=== PATIENT | female | born 1950 | race Caucasian/White ===

== ENCOUNTER → 2017-04-18 | Outpatient (CLI) | payer BC ==
[2016-04-14 13:07] VITALS: BP 134/81; PULSE 79
[~2017-04-18] MED LIST: AMOX500C3 PO; ANAS1TAB19 PO; ASPI81TA28 PO; ATOR10TA88 PO; CETI10TA84 PO; CITA10TA4 PO; DIAZ-165 PO; HYDR-3419 PO; IBUP-1427 PO; LORA-741 PO; MULT-506 PO; PROP10TA7 PO
[2017-04-18 13:38] VITALS: BP 125/85; PULSE 77; TEMP 37.1; O2SAT 97
--- NOTE | 2017-04-18 16:27 | Radiation Oncology Follow-Up ---
Radiation Oncology Follow-Up Date of Visit Apr 18, 2017. Reason For Visit Annual follow-up Radiation Completion Date 09/09/15 Diagnosis (1) Breast cancer Status: Resolved Onset Date: 05/08/2015 Histology Subtype: ductal Stage: ll (A) Permanent Comment: DIAGNOSIS: Left breast, invasive ductal carcinoma, grade 2, ER/CA positive, Her2 negative, pT2N0, stage IIA TREATMENT: Status post ultrasound-guided biopsy 05/18/2015 Lumpectomy and SLN biopsy on 05/27/2015 (Dr. Chacha Figueroa) Prosigna Test at 64 recurrence rate of 14% no chemotherapy Status post completion of radiation therapy 09/09/2015 received 6640 cGy Last Edited By: Natali Delong on Sep 18, 2015 13:26 History of Present Illness Mrs. Aguilar is a 65-year-old female who initially presented with an abnormal screening mammogram on 05/06/2015 which showed a high density irregular mass in the upper outer quadrant of the breast. She then went on to have a diagnostic left mammogram and ultrasound completed on 05/08/2015 which revealed an irregular mass with pleomorphic calcifications in the middle left breast that measured 22 mm in the greatest dimension on ultrasonography. She underwent an ultrasoundguided biopsy on 05/08/2015 which revealed invasive ductal carcinoma that was grade 2 with microcalcifications. Hormonal testing revealed estrogen receptor positive, progesterone receptor positive and HER-2 negative. She was referred to Dr. Figueroa who discussed treatment options including a mastectomy and lumpectomy followed by adjuvant radiation therapy. She ended up opting for breast conserving therapy and underwent a lumpectomy and sentinel lymph node biopsy on 05/19/2015 which revealed a unifocal invasive ductal carcinoma involving the left upper outer quadrant. The tumor measured 2.5 cm in greatest dimension and there was DCIS present as well. The margins were negative for both DCIS and invasive ductal carcinoma by at least 5 mm. There is no evidence of lymphovascular space invasion. The sentinel lymph node was also negative. Patient has been referred to Dr. Puentes she has not seen him in consultation we'll see him in 07/15/2015. She did have a Prosigna test which completed on 2014 with a score of 64. She now presents for discussion of adjuvant radiation therapy. She completed radiation therapy 09/09/2015 received 6640 cGy. Interim History She's been doing well over this past year. She noticed no changes to her breast. She does have intermittent discomfort in the area of the incision. Pain level is minimal. She does not give at a level. She is not taking any fawa-brh-[id number] medications for this discomfort. This is unchanged. Is not affected by wearing a bra. She had no swelling or redness. She continues on antiestrogen therapy with Arimidex. For the first 6 months she had significant hot flash reactions. These then steadily improved and resolved. She is up-to- date on mammography. She is previously started and evaluation with the genetics counselor at [facility]. She stated that she completed an extensive phone consultation. She also completed the family tree. She has not completed genetic testing. She is scheduled to undergo an elective hysterectomy due to prolapse. She had a mammogram 12/08/2016. She is status post radiation therapy and lumpectomy. A complex cyst on ultrasound in the upper outer quadrant at a middle depth, decreased in size. Findings are probably benign. Follow-up in 6 months. Allergies Coded Allergies: Oxycodone (Verified Allergy, Severe, Rash, Hair Loss, Hallucinations , 07/08/15) Lobster (Verified Allergy, Unknown, FAINTING, DIZZINESS, HOT FLASHES, 11/09) Home Medications Scheduled Anastrozole (Arimidex), 1 TAB PO HS Aspirin (Aspirin Ec), 81 MG PO DAILY Atorvastatin (Lipitor), 10 MG PO QPM Citalopram Hydrobromide (Citalopram Hydrobromide), 1 TAB PO DAILY Ibuprofen Tab (Motrin), 1 TAB PO HS Multivitamin (Multivitamin), 1 TAB PO DAILY Scheduled PRN Amoxicillin (Amoxil), 2,000 MG PO PRN PRN for before dental procedures Hydrocodon/Acetaminophen 5MG/300MG (Vicodin (5MG/300MG)), 1 TAB PO Q4H PRN for Pain Lorazepam (Ativan), 0.5 MG PO HS PRN for Sleep Review of Systems Gastrointestinal: Symptoms: WNL Oral: Symptoms: No Problems Other Oral Symptoms: Patient bites lip at night once in a while and gets small sores Respiratory: Symptoms: WNL Urinary: Symptoms: WNL Skin: Symptoms: No Problems Breast: Right Upper Arm Measurement: 27.0 Right Mid Arm Measurement: 23.2 Right Wrist Measurement: 16.2 Left Upper Arm Measurement: 28.0 Left Mid Arm Measurement: 23.2 Left Wrist Measurement: 15.9 Arm Dominence: Right Physical Exam Vital Signs Date Time Temp Pulse Resp B/P (MAP) Pulse Ox O2 Delivery O2 Flow Rate FiO2 04/18/17 13:38 37.1 77 16 125/85 97 Pain: Pain Onset: Comes and goes Patient Pain Scale: 0 - 10 Initial Pain Intensity: 0.0 Additional Comments: Patient gets "twinges" of pain in left breast at incision site and under ar Fatigue: None General Appearance: no apparent distress Eyes: normal inspection, EOMI ENT: normal ENT inspection, hearing grossly normal Neck: no adenopathy, thyroid normal Respiratory/Chest: lungs clear, no respiratory distress, no accessory muscle use Breast: Breast examination reveals well-healed incisions of the left breast. There is noted fibrous tissue in the area of the incision and centrally of the breast. There is mild tenderness to palpation in this area. There is no erythema or edema. There are no distinct masses. She has no axillary adenopathy. There are no skin retractions or nipple changes. Using the Endicott score cosmesis she has a good outcome. The right breast showed no masses or tenderness and no axillary adenopathy. Cardiovascular: regular rate, rhythm, no gallop, no murmur Extremities: no pedal edema Neurologic/Psychiatric: no motor/sensory deficits, alert, normal mood/affect Skin: warm/dry Lymphatic: no adenopathy Additional Studies Mammography as reviewed above. Assessment & Plan Plan: Continue follow-up with Dr. Puentes, Dr. Mederos, Dr. Figueroa. She is going to be undergoing a hysterectomy due to prolapse. She stated that she will try to arrange a possible visit with the genetics counselor when she is in [place]. She does want to go forward with genetic testing. She continues on anti-estrogen therapy. We discussed the scar tissue of her breast and associated discomfort. This will steadily improve over time. We asked her to return to our office in 1 year. She may call if she has any questions or concerns in the interim. She is scheduled for her next mammogram on 06/13/2017. Total Time In Follow-Up I spent 20 minutes speaking to the patient performing examination. I spent 15 minutes reviewing information in completing this note. Copy To Chacha Figueroa MD; Lawrence Mederos M.D.; Nima Puentes M.D. Problem Qualifiers (1) Breast cancer: Breast location: upper outer quadrant of breast Estrogen receptor status: positive Patient sex: female Laterality: left Qualified Codes: C50.412 - Malignant neoplasm of upper-outer quadrant of left female breast; Z17.0 - Estrogen receptor positive status [ER+]
== END | disposition home or self-care (01) ==
LOC: C.ONC 13:33
PROVIDERS: ATTEND Physician Assistant Medical
DX: Z08 Encounter for follow-up examination after completed treatment for malignant neoplasm (principal); Z92.3 Personal history of irradiation; Z85.3 Personal history of malignant neoplasm of breast

== ENCOUNTER 2022-01-18 09:04 | Observation (INO) ==
--- NOTE | 2022-01-03 15:36 | PAT Medication Instructions ---
Medication Instructions Date of Service January 03, 2022 Home Medications amoxicillin 500 mg tablet 2,000 mg PO UD PRN anastrozole 1 mg tablet 1 mg PO HS aspirin 81 mg chewable tablet 81 mg PO QAM atorvastatin 10 mg tablet (Lipitor) 10 mg PO HS citalopram 20 mg tablet 20 mg PO QAM diphenhydramine HCl 25 mg tablet (Benadryl Allergy) 25 mg PO HS PRN doxycycline hyclate 50 mg tablet 50 mg PO QAM famotidine 20 mg tablet 20 mg PO DAILY PRN folic acid 400 mcg tablet 0.4 mg PO QAM hydrocodone 5 mg-acetaminophen 325 mg tablet 0.25 tab PO HS PRN ibuprofen 400 mg tablet 400 mg PO TID latanoprost (PF) 0.005 % eye drops 1 drp OPHTHALMIC (EYE) HS loratadine 10 mg tablet (Claritin) 10 mg PO DAILY PRN lorazepam 0.5 mg tablet 0.5 mg PO HS PRN One-A-Day Womens Formula 1 tab PO QAM propranolol 10 mg tablet 10 mg PO DAILY PRN Continue as directed amoxicillin 500 mg tablet 2,000 mg PO UD PRN (if needed) ASK your surgeon for instructions ibuprofen 400 mg tablet 400 mg PO TID ASK your prescriber and surgeon anastrozole 1 mg tablet 1 mg PO HS DO NOT take the morning of surgery folic acid 400 mcg tablet 0.4 mg PO QAM loratadine 10 mg tablet (Claritin) 10 mg PO DAILY PRN One-A-Day Womens Formula 1 tab PO QAM Take morning of surgery With a small sip of water, OTHERWISE NOTHING TO EAT OR DRINK AFTER MIDNIGHT: aspirin 81 mg chewable tablet 81 mg PO QAM (continue as normal unless told ot herwise by surgeon) citalopram 20 mg tablet 20 mg PO QAM doxycycline hyclate 50 mg tablet 50 mg PO QAM famotidine 20 mg tablet 20 mg PO DAILY PRN (if needed) propranolol 10 mg tablet 10 mg PO DAILY PRN (if needed) Take evening before surgery anastrozole 1 mg tablet 1 mg PO HS atorvastatin 10 mg tablet (Lipitor) 10 mg PO HS diphenhydramine HCl 25 mg tablet (Benadryl Allergy) 25 mg PO HS PRN (if needed) famotidine 20 mg tablet 20 mg PO DAILY PRN (if needed) hydrocodone 5 mg-acetaminophen 325 mg tablet 0.25 tab PO HS PRN (if needed) latanoprost (PF) 0.005 % eye drops 1 drp OPHTHALMIC (EYE) HS loratadine 10 mg tablet (Claritin) 10 mg PO DAILY PRN (if needed) lorazepam 0.5 mg tablet 0.5 mg PO HS PRN (if needed) propranolol 10 mg tablet 10 mg PO DAILY PRN (if needed) Other Notes If you have any questions please call us at [phone] or [phone] or [phone] or [phone]
--- NOTE | 2022-01-04 13:17 | Anesthesiology Consultation ---
Date of Service January 04, 2022 Assessment & Plan (1) Encounter for pre-operative examination: Chart Review Chart Review: Acceptable Risk for Surgery (pending PCP appt, UA, and preop Covid testing results ) and Patient seen in Pre Admission Testing - Pending PCP appt 01/10/22 - Unable to void at PAT appt - will bring in UA at later date Per PAT appt on 01/04/22, patient denies any recent travel or large group activities. No known Covid positive exposures or Covid related symptoms. No known Covid infection in the past 90 days. Pt is vaccinated for Covid. Preop Covid testing scheduled 01/14/22 = will await results. Educated on importance of self quarantining, social distancing and wearing mask in public for the patient one week prior to surgery and after Covid testing done Teaching & Discussion Pre-Anesthesia Teaching/Discussion Notes: Instructed NPO after midnight before surgery,except medications with 15 cc of water. Medication instructions provided according to the [facility] guidelines. History Surgery Operation Date: 01/18/22 12:55 Proposed Procedures p Right Total Knee Arthroplasty - Ralf Modi DO Height/Weight Height: 5 ft 8 in Weight: 80.3 kg Allergies Allergy/AdvReac Type Severity Reaction Status Date / Time oxycodone Allergy Severe Rash, Hair Verified 01/03/22 07:55 Loss, Hallucinations, disrupts balance Lobster Allergy Intermediate FAINTING, Uncoded 01/03/22 07:55 DIZZINESS, HOT FLASHES Medications Home Medications Medication Instructions Recorded Confirmed Last Taken amoxicillin 500 mg tablet 2,000 mg PO UD PRN 01/03/22 01/03/22 Unknown anastrozole 1 mg tablet 1 mg PO HS 01/03/22 01/03/22 Unknown aspirin 81 mg chewable tablet 81 mg PO QAM 01/03/22 01/03/22 Unknown atorvastatin 10 mg tablet (Lipitor) 10 mg PO HS 01/03/22 01/03/22 Unknown citalopram 20 mg tablet 20 mg PO QAM 01/03/22 01/03/22 Unknown diphenhydramine HCl 25 mg tablet 25 mg PO HS PRN 01/03/22 01/03/22 Unknown (Benadryl Allergy) doxycycline hyclate 50 mg tablet 50 mg PO QAM 01/03/22 01/03/22 Unknown famotidine 20 mg tablet 20 mg PO DAILY PRN 01/03/22 01/03/22 Unknown folic acid 400 mcg tablet 0.4 mg PO QAM 01/03/22 01/03/22 Unknown hydrocodone 5 mg-acetaminophen 325 0.25 tab PO HS PRN 01/03/22 01/03/22 Unknown mg tablet ibuprofen 400 mg tablet 400 mg PO TID 01/03/22 01/03/22 Unknown latanoprost (PF) 0.005 % eye drops 1 drp OPHTHALMIC (EYE) HS 01/03/22 01/03/22 Unknown loratadine 10 mg tablet (Claritin) 10 mg PO DAILY PRN 01/03/22 01/03/22 Unknown lorazepam 0.5 mg tablet 0.5 mg PO HS PRN 01/03/22 01/03/22 Unknown agptlpoy-zot-bfly-FA-Ca carb-vit K 1 tab PO QAM 01/03/22 01/03/22 Unknown 18 mg iron-400 mcg-500 mg tablet (One-A-Day Womens Formula) propranolol 10 mg tablet 10 mg PO DAILY PRN 01/03/22 01/03/22 Unknown Past Medical History Medical History Anxiety Heartburn Well controlled and stable History of left breast cancer Diagnosed 2014--sx/radiation - takes anastrozole Left limb restriction per pt request Hyperlipidemia Normal pressure glaucoma Left eye- follows with eye doctor routinely Seasonal allergies Tachycardia Intermittent, per pt happens typically d/t caffeine---takes propranolol PRN Well controlled- no issues x years Exercise / Class Metabolic Activity II 4-5 Yardwork/Stairs/Walk up hill (one flight of stairs - no chest pain or SOB ) Past Family History Family History Other No family history of adverse response to anesthesia Past Surgical History Surgical History History of arthroscopy of left knee x3 History of left breast biopsy malignant History of lumpectomy of left breast (~2014) History of tonsillectomy and adenoidectomy History of tooth extraction History of total left knee replacement (TKR) (~2009) History of total vaginal hysterectomy (TVH) with BSO Past Anesthesia History No Hx of Anesthesia Complications and No Family Hx of Anesthesia Complications History of PONV No Hx of PONV and No Hx of Motion Sickness Social History Smoking Status: Former smoker Do You Dip or Chew Tobacco: No Smoking End Date: quit 1987 Hx Alcohol Use: Yes Alcohol type: beer alcohol intake frequency: holidays/special occasions only Hx Substance Use: No substance use type: does not use Review of Systems -Increased anxiety (seeing PCP) -Hx of snoring (not loud per patient)- no hx of sleep study Patient denies chest pain, shortness of breath, dyspnea on exertion, cough, wheezing, palpitations. No hx of seizures, stroke, RI. No hx of blood clots or blood transfusions Physical Exam Vital Signs VITALS BP 118/76 P 80 TEMP 98.4 SP02 96% RESP 16 Constitutional no acute distress ENMT Mouth: + small oral opening; no TMJ clicking Thyromental Distance: > or= 3.5 Finger Breadths (3.5) Mallampati Class: III Neck neck extension not limited Respiratory normal respiratory effort; no respiratory distress Auscultation: lungs clear to auscultation bilaterally; no wheezes Cardiovascular Rate/Rhythm: regular rate and regular rhythm Heart Sounds: no murmur Vessels: no carotid bruit Musculoskeletal Spine: no pain with cervical ROM Extremities: extremities normal to inspection Psychiatric Orientation: alert Lab Results Anesthesia Preop Results Results Anesthesia Widget: WBC 5.92 K/uL (4.8-10.8) 01/04/22 Hgb 12.6 g/dL (12.0-16.0) 01/04/22 Hct 38.1 % (37-47) 01/04/22 Plt 279 K/uL (130-400) 01/04/22 Na 140 mmol/L (136-145) 01/04/22 K 3.6 mmol/L (3.5-5.1) 01/04/22 Cl 106 mmol/L (98-107) 01/04/22 CO2 26 mmol/L (21-32) 01/04/22 BUN 15 mg/dl (6-23) 01/04/22 Creat 0.80 mg/dl (0.6-1.2) 01/04/22 Glucose Level 103 mg/dl (70-99(Fasting)) H 01/04/22 PT 10.3 Seconds (9.0-12.0) 01/04/22 PTT 24.9 Seconds (21.0-31.0) 01/04/22 INR 1.0 (0.9-1.1) 01/04/22 HA1c 5.6 % (4.5-5.6) 01/04/22 Blood Type O Positive 01/04/22 Antibody Screen NEGATIVE 01/04/22 Testing Electrocardiogram Date: 01/04/22 Findings: + NSR @ (61bpm ) Cannot rule out anterior infarct, age undetermined. Nonspecific ST abnormality When compared to EKG from November 24, 2014- no significant change was found Chest X-Ray Date: 08/17/21 Findings: + NAD RIBS 2 VIEWS/CXR 2 VIEWS No acute rib fracture is identified. Lungs are well aerated. Cardiovascular silhouette is within normal limits
--- NOTE | 2022-01-05 13:37 | History & Physical Report ---
Date of Service January 05, 2022 date of surgery: 01/18/22 Procedure: Right Total Knee Arthroplasty Surgeon: Ralf Modi Assessment & Plan (1) Arthritis of right knee: Plan: presents with continued right knee pain, her cortisone injections are lasting less than a month now. her xrays show advanced DJD right knee, bone on bone medial compartment and PF joint, osteophytes present and joint space narrowing. she would like to proceed with patient matched Right TKA. she has S&N on her left knee in 2009, will proceed with patient matched S&N Right TKA. plan on home health PT, ASA 81 mg po bid. The risks and benefits have been discussed including, but not limited to, risk of infection, nerve injury, stiffness, loss of motion, failure to improve, etc. Reasonable outcomes and options of treatment were discussed. An explanation of appropriate alternatives to the procedure that may be advantageous were discussed and their risks and benefits, as well as the risks and benefits of not proceeding with treatment. I offered to answer any additional inquiries con cerning the treatment involved. All the patient's questions were answered. The patient is agreeable, understanding of the treatment plan and alternatives, and wishes to proceed with the treatment plan. History of Present Illness Chief Complaint: Right knee pain Primary Care Provider: Lawrence Mederos MD Monique is a 71 year old female who complains of right knee pain, presents for pre-op evaluation prior to a right total knee replacement by Dr Modi at [facility]. She complains of pain, decreased range of motion, instability and stiffness in her right knee. Currently the patient states that the symptoms are moderate- severe and rated 7/10. The pain is described as aching, sharp and throbbing. Her symptoms are aggravated by ascending stairs, daily activities, first steps while awake walking. Prior NSAIDs include IBU and Aleve. Prior pain medications include Tylenol and Hydrocodone. she has been treated with multiple previous cortisone and visco injections in the past without much relief. Allergies Allergy/AdvReac Type Severity Reaction Status Date / Time oxycodone Allergy Severe Rash, Hair Verified 01/03/22 07:55 Loss, Hallucinations, disrupts balance Lobster Allergy Intermediate FAINTING, Uncoded 01/03/22 07:55 DIZZINESS, HOT FLASHES Home Medications Medication Instructions Recorded Confirmed Type amoxicillin 500 mg tablet 2,000 mg PO UD PRN 01/03/22 01/03/22 History anastrozole 1 mg tablet 1 mg PO HS 01/03/22 01/03/22 History aspirin 81 mg chewable tablet 81 mg PO QAM 01/03/22 01/03/22 History atorvastatin 10 mg tablet (Lipitor) 10 mg PO HS 01/03/22 01/03/22 History citalopram 20 mg tablet 20 mg PO QAM 01/03/22 01/03/22 History diphenhydramine HCl 25 mg tablet 25 mg PO HS PRN 01/03/22 01/03/22 History (Benadryl Allergy) doxycycline hyclate 50 mg tablet 50 mg PO QAM 01/03/22 01/03/22 History famotidine 20 mg tablet 20 mg PO DAILY PRN 01/03/22 01/03/22 History folic acid 400 mcg tablet 0.4 mg PO QAM 01/03/22 01/03/22 History hydrocodone 5 mg-acetaminophen 325 0.25 tab PO HS PRN 01/03/22 01/03/22 History mg tablet ibuprofen 400 mg tablet 400 mg PO TID 01/03/22 01/03/22 History latanoprost (PF) 0.005 % eye drops 1 drp OPHTHALMIC (EYE) HS 01/03/22 01/03/22 History loratadine 10 mg tablet (Claritin) 10 mg PO DAILY PRN 01/03/22 01/03/22 History lorazepam 0.5 mg tablet 0.5 mg PO HS PRN 01/03/22 01/03/22 History lhoeaqxy-ekr-xfjw-FA-Ca carb-vit K 1 tab PO QAM 01/03/22 01/03/22 History 18 mg iron-400 mcg-500 mg tablet (One-A-Day Womens Formula) propranolol 10 mg tablet 10 mg PO DAILY PRN 01/03/22 01/03/22 History Past Med/Surg History Medical History Anxiety Heartburn Well controlled and stable History of left breast cancer Diagnosed 2014--sx/radiation - takes anastrozole Left limb restriction per pt request Hyperlipidemia Normal pressure glaucoma Left eye- follows with eye doctor routinely Seasonal allergies Tachycardia Intermittent, per pt happens typically d/t caffeine---takes propranolol PRN Well controlled- no issues x years Surgical History History of arthroscopy of left knee x3 History of left breast biopsy malignant History of lumpectomy of left breast (~2014) History of tonsillectomy and adenoidectomy History of tooth extraction History of total left knee replacement (TKR) (~2009) History of total vaginal hysterectomy (TVH) with BSO Family History Other No family history of adverse response to anesthesia Social History Smoking Status: Former smoker Second Hand Exposure: No; Hx Alcohol Use: Yes Alcohol type: beer Hx Substance Use: No Preferred Language: Croatian Communication Ability: Effective Photograph Developer Required: No Beliefs That Will Affect Care: None Current Living Situation: Spouse Feels Safe at Home: Yes Assistive Devices: Glasses Review of Systems Review of Systems: All systems reviewed & are unremarkable except as noted in HPI & below Constitutional: no fever, no chills and no sweats Respiratory: no cough and no dyspnea Cardiovascular: no chest pain, no dyspnea and no orthopnea Gastrointestinal: no abdominal pain, no nausea and no vomiting Musculoskeletal: as per Subjective / HPI Physical Exam Physical Exam: HT: 5ft 8in WT: 80.3kg Constitutional: WD/WN, vitals as above no acute distress Respiratory: normal respiratory effort, lungs clear to auscultation no r espiratory distress, no labored breathing and does not use accessory muscles Cardiovascular: RRR, no murmur, no edema Gastrointestinal (Abdomen): normal bowel sounds, soft, nontender, no hepatosplenomegaly Musculoskeletal: Knee: + knee abnormal to inspection (Right Knee: ), + effusion (+1 effusion), + limited ROM of knee (ROM 0/3/110), + knee ROM with crepitation, + joint line tenderness (medial joint line) and + Yeyo's sign positive; no deformity, no skin erythema, no ecchymosis, no valgus laxity, no varus laxity, anterior drawer test negative, Naveed's sign negative and pivot shift test negative Results & Data Results & Data ([facility]) Diagnostic Findings Right Knee X-ray: Right knee series showing advanced degenerative changes to the right knee, narrowing of the medial compartment and patello-femoral joint with patellar spurring noted, findings showing joint space narrowing of the medial compartment and patello-femoral joint, osteophyte formation and subchondral sclerosis noted. overall varus alignment. no acute bony pathology noted.
[~2022-01-18 09:04] MED LIST changes: +ACETAMINOPHEN 500 MG TAB PO SCH; -AMOX500C3 PO; -ANAS1TAB19 PO; -ASPI81TA28 PO; -ATOR10TA88 PO; +BUPIVACAINE 0.5 % 5 MG/1 ML PF 10ML VIAL ONE; -CETI10TA84 PO; -CITA10TA4 PO; +CeleBREX 200 MG CAP PO SCH; -DIAZ-165 PO; +FAMOTIDINE 20 MG TAB PO SCH; +GABAPENTIN 300 MG CAP PO SCH; -HYDR-3419 PO; -IBUP-1427 PO; -LORA-741 PO; +LR 500ML BOLUS, THEN 15ML/HR IV SCH; +METOCLOPRAMIDE HCL 10 MG TABLET PO SCH; -MULT-506 PO; -PROP10TA7 PO; +ROPIVACAINE 0.5% 5 MG/ML 30 ML VIAL ONE; +ROPIVACAINE 0.5% HCL/PF 150 MG, BUPIVACAINE 0.75% MPF 20 ML, EPINEPHrine 30MG/30ML (OR ... INSTIL SCH; +TRANEXAMIC ACID 1,000 MG **IV Intra-op IV SCH; +TRANEXAMIC ACID 1,000 MG **IV Pre-op IV SCH; +ceFAZolin 2000MG 2,000 MG/15 ML SYR IV SCH; +dexAMETHasone 4 MG TAB PO SCH
--- NOTE | 2022-01-18 10:19 | History & Physical Bridge Note ---
Date of Service January 18, 2022 History & Physical Bridge Note I have examined the patient, reviewed the History & Physical and in the interval since the performance of the History & Physical I have noted the following changes of clinical significance: no changes noted
[2022-01-18] MEDS ORDERED: PROPOFOL IV EMULSION 10 MG/ML 20 ML VIAL IV ONE (10:29)
[2022-01-18] MEDS ORDERED: MIDAZOLAM HCL 1 MG/ML 2ML VIAL ONE (10:30)
[2022-01-18] MEDS ORDERED: fentaNYL citrate 100 MCG/2 ML VIAL ONE (10:30)
[2022-01-18] MEDS ORDERED: ONDANSETRON INJ 2 MG/ML 2 ML VIAL IV PRN ×2 (12:06→17:15)
[2022-01-18] MEDS ORDERED: ORTHO JOINT ANESTHETIC ONE (12:06)
[2022-01-18] MEDS ORDERED: HYDROmorphone INJ 1 MG/ML SYRINGE IV PRN ×2 (12:06→17:15)
[2022-01-18] MEDS ORDERED: ATROPINE SULFATE 0.1 MG/ML 10ML SYR IV PRN (12:06)
[2022-01-18] MEDS ORDERED: PROMETHAZINE HCL 6.25 MG in SODIUM CHLORIDE 0.9% 50 ML IV PRN (12:06)
[2022-01-18] MEDS ORDERED: KETOROLAC TROMETHAMINE 15 MG/ML VIAL IV PRN (12:06)
[2022-01-18] MEDS ORDERED: ePHEDrine sulfate 50 MG/ML AMP IV PRN (12:06)
--- NOTE | 2022-01-18 13:51 | Operative Report ---
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 I identified the patient and participated in the time-out.: Yes Procedure Operation Date: 01/18/22 11:45 Actual Procedures p Right Total Knee Arthroplasty(Right) utilizing [employer] journey to nonblock total knee arthroplasty size femur 5 tibia 3 polyten patella 29 Ralf Modi DO Surgeon Ralf Modi DO Online Activist EDUIN Levine Estimated Blood Loss 5 Findings Consistent with Post-Op Diagnosis Patient presents with severe end-stage tricompartmental degenerative joint disease with valgus alignment with medial collateral ligament laxity eburnated [id number] with bone loss of the lateral femoral condyle with subchondral cystic changes marginal osteophytes and a large effusion Specimens Bone and cartilage Drains Medium bore Hemovac Anesthesia Type MAC Spinal Regional Complications none Disposition Accompanied Patient To Recovery: No Disposition: Recovery Room Indications Patient presents with severe end-stage tricompartmental DJD after failed attempted conservative management clinic physical therapy anti-inflammatories relative rest activity modification corticosteroid injection viscosupplementation the above intraoperative findings were noted Description of Procedure After proper prepping and draping of the Right lower extremity anterior midline incision was made over the region of the extensor extensor mechanism after meticulous hemostasis was obtained and maintained in subcutaneous tissues a medial parapatellar incision was made The patella was subluxed lateralward the medial lateral gutter were cleaned from any hypertrophic synovitis and scar tissue of the distal femoral block was placed and the distal femoral osteotomy cut was made subsequently the chamfers anterior and posterior osteotomy cuts were made utilizing the 4-in-1 block the tibia was subsequently subluxed anteriorward medial and ateral meniscal remnants were excised in their entirety remnants of the anterior and posterior cruciate ligaments were excised in their entirety excellent exposure of the proximal tibia was obtained the tibial osteotomy guide was placed on the proximal tibial osteotomy cut was made once again the knee was irrigated with copious amounts of sterile saline solution the patella was subsequently everted lateralward thickened scar tissue around the patella was removed the patella was subsequently cut utilizing a freehand technique and was drilled prepared for final preparation and placement of patella socially flexion-extension gaps were checked and the equal and symmetric trials were placed to the appropriate femoral and tibial trials with poly-spacer being placed for equal flexion and extension gaps and full range of motion including extension to 0 and flexion to 140 the trial components after having been taken to recovery range of motion was subsequently removed meticulous hemostasis was obtained and maintained subsequently a knee block injection of joint cocktail including ropivacaine 0.5% 150 mg. Bupivacaine 0.5% epinephrine 1-200,030 mL's toradol 30 mg dexamethasone 4 mg ketamine 10 mg clonidine 100 micrograms normal saline solution 30 mg was infiltrated into the soft tissues of the posterior knee medial lateral gutters and periosteal synovium special attention was paid to protect neurovascular structures at all times subsequently trial components having been removed the knee was irrigated with sterile saline solution. debris was removed the proximal tibia was subsequently prepared and was made ready for the placement of the tibial component tibial component was also cemented and tamped into position the femoral component was subsequently placed and cemented in the position the patellar component was subsequently cemented in position because hemostasis once again obtained and maintained wound having been thoroughly irrigated with debridement and debridement lavage was performed as well as a medial parapatellar incision closed with #1 Vicryl in interrupted fashion subcutaneous was closed with #2 Vicryl skin was closed with skin clips. PA-C was necessary for prepping and drapping as well as wound closure of deep fascia Sub cutaneous tissue and skin and was necessary for the case. A sterile compressive dressing was placed patient was taken to recovery in stable condition of report dictated by Rian I attest to the content of the Intraoperative Record and any orders documented therein. Any exceptions are noted below.Due to the complex nature of the procedure, the entire surgery was performed with the operational assistance of EDUIN Levine. The family services assistant, under direct supervision, was involved in the actual performance of all aspects of the surgical procedure including hemostasis, tissue retraction and incision, instrument management, patient positioning, and wound closure. I attest to the content of the Intraoperative Record and any orders documented therein. Any exceptions are noted below.
--- NOTE | 2022-01-18 15:09 | XRay Report ---
XR knee RT 1 or 2V routine HISTORY: 71 years-old Female Surgical Post Op right knee total joint COMPARISON: None TECHNIQUE: 2 views of the right knee FINDINGS: Total joint arthroplasty with patellar resurfacing. Expected postoperative soft tissue swelling with deep tissue air and surgical drainage catheter. No acute fracture or unexpected opaque foreign body. IMPRESSION: Total joint arthroplasty with expected postoperative changes. ACT 112: Negative or not required by law. The above report was generated using voice recognition software. It may contain grammatical, syntax o r spelling errors. Electronically signed by: Melvin Matt M.D. 01/18/2022 3:07 PM
--- NOTE | 2022-01-18 15:25 | Anesthesiology Progress Note ---
Date of Service January 18, 2022 Anesthesia Post Procedure Vital Signs Vital Signs: Temp Pulse Pulse Resp BP Pulse Ox 01/18/22 15:05 67 10 L 141/80 H 94 01/18/22 14:55 76 13 139/80 97 01/18/22 14:45 83 19 127/78 99 01/18/22 14:35 82 10 L 126/69 98 01/18/22 14:29 36.1 C L 93 H 19 132/72 97 01/18/22 09:32 36.9 C 62 18 128/94 98 Pain Intensity Right Knee: Pain Intensity: 5 Transfer of Care Handoff Completed per policy Notes Mental Status: alert / awake / arousable Patient Amnestic to Procedure: Yes Nausea / Vomiting: adequately controlled Pain: adequately controlled Airway Patency, RR, SpO2: stable & adequate BP & HR: stable & adequate Hydration State: stable & adequate Neuraxial Anesthesia: was administered and sensory block is resolving Anesthetic Complications: no major complications apparent
[2022-01-18] MEDS ORDERED: LORazepam 0.5 MG TAB PO PRN (17:15)
[2022-01-18] MEDS ORDERED: bisacodyL 10 MG SUPP PR PRN (17:15)
[2022-01-18] MEDS ORDERED: MAGNESIUM HYDROXIDE SUSP 30 ML UDC PO PRN (17:15)
[2022-01-18] MEDS ORDERED: PROPRANOLOL HCL 10 MG TAB PO PRN (17:15)
[2022-01-18] MEDS ORDERED: METOCLOPRAMIDE HCL INJ 5 MG/ML 2 ML VIAL IV PRN (17:15)
[2022-01-18] MEDS ORDERED: diphenhydrAMINE Capsule 25 MG CAP PO PRN (17:15)
[2022-01-18] MEDS ORDERED: FAMOTIDINE 20 MG TAB PO PRN (17:15)
[2022-01-18] MEDS ORDERED: LORATADINE 10 MG TAB PO PRN (17:15)
[2022-01-18] MEDS ORDERED: NALOXONE HCL 0.4 MG/1 ML VIAL/CARP IV PRN (17:15)
[2022-01-18] MEDS: SODIUM CHLORIDE 0.9% 1000ML 1,000 ML IV SCH (18:24)
[2022-01-18] MEDS: KETOROLAC TROMETHAMINE 15 MG/ML VIAL IV SCH (18:30)
[2022-01-18] MEDS: ceFAZolin 2000MG 2,000 MG/15 ML SYR IV SCH (19:49)
[2022-01-18] MEDS: ANASTROZOLE 1 MG TAB PO SCH (19:50)
[2022-01-18] MEDS: CeleBREX 200 MG CAP PO SCH (19:51)
[2022-01-18] MEDS: ASPIRIN 81 MG ECTAB PO SCH (19:51)
[2022-01-18] MEDS: ATORVASTATIN 10 MG TAB PO SCH (19:51)
[2022-01-18] MEDS: DOCUSATE SODIUM 100 MG CAP PO SCH (19:52)
[2022-01-18] MEDS: LATANOPROST 0.005% OP SOLN 2.5 ML BTL OP SCH (19:52)
[2022-01-18] MEDS: SENNA 8.6 MG TAB PO SCH (19:52)
[2022-01-19] MEDS: KETOROLAC TROMETHAMINE 15 MG/ML VIAL IV SCH ×3 (00:31→11:16)
[2022-01-19] MEDS: HYDROCODONE/ACETAMOPHEN 5/325MG TAB PO PRN ×4 (00:35→20:34)
[2022-01-19] MEDS: SODIUM CHLORIDE 0.9% 1000ML 1,000 ML IV SCH (03:40)
[2022-01-19] MEDS: ceFAZolin 2000MG 2,000 MG/15 ML SYR IV SCH (04:41)
[2022-01-19 06:26] LABS: Hematocrit (blood only) 28.2 % (37-47); Hemoglobin 9.5 g/dL (12.0-16.0); Mean Corpuscular Hemoglobin 29.6 pg (25-34); Mean Corpuscular Hgb Conc 33.7 g/dL (32-36); Mean Corpuscular Volume 87.9 fL (80-100); Mean Platelet Volume 10.4 fL (7.4-10.4); Platelet Count 215 K/uL (130-400); RDW Coefficient of Variation 12.6 % (11.5-14.5); RDW Standard Deviation 40.8 fL (36.4-46.3); Red Blood Count 3.21 M/uL (4.2-5.4); White Blood Count 11.99 K/uL (4.8-10.8)
[2022-01-19 06:46] LABS: BUN Creatinine Ratio 23.3 (10-20); Calcium 8.7 mg/dl (8.5-10.1); Creatinine Clr Calc Pharmacy 77.4 ml/min; Est GFR (African American) 95.4 ml/min; Est GFR (Non-African American) 82.3 ml/min
[2022-01-19] MEDS: DOXYCYCLINE HYCLATE 50 MG CAP PO SCH (08:22)
[2022-01-19] MEDS: FOLIC ACID 400 MCG TAB PO SCH (08:23)
[2022-01-19] MEDS: DOCUSATE SODIUM 100 MG CAP PO SCH ×2 (08:23→20:28)
[2022-01-19] MEDS: CeleBREX 200 MG CAP PO SCH ×2 (08:23→20:27)
[2022-01-19] MEDS: CITALOPRAM 20 MG TAB PO SCH (08:24)
[2022-01-19] MEDS: MULTIVITAMIN TAB PO SCH (08:24)
[2022-01-19] MEDS: ASPIRIN 81 MG ECTAB PO SCH ×2 (08:25→20:26)
--- NOTE | 2022-01-19 09:02 | Orthopedic Progress Note ---
Date of Service January 19, 2022 Assessment & Plan (1) Arthritis of right knee: Plan: Postop day 1 status post right total knee arthroplasty. PT/OT protocols. Weightbearing as tolerated. DVT prophylaxis-aspirin p.o. twice daily, SCDs, KIMO varma. Pain management as written. Acute blood loss anemia- hemoglobin 9.5 today. Patient currently asymptomatic. DC planning patient is planning for outpatient PT upon discharge. We will recheck the patient later today to see how she is progressing with her therapy. Admission and Anticipated Discharge Date Admission Date: January 18, 2022 Subjective Postop day 1 Patient sitting up in bed awake and alert. States she did not sleep well last night and was having some pain off and on in the operative team. No other complaints. Physical Exam Physical Exam: Dressings are clean, dry, and intact. Calves are soft and nontender. Neurovascular is intact. Toes are mobile. She has good dorsiflexion and plantarflexion of the right knee. Hemovac drainage was 60 mL from the previous shift. Results & Data ([facility]) Vital Signs (Past 12 Hours) Vital Signs Temp Pulse Resp BP Pulse Ox 01/19/22 07:44 36.4 C L 60 16 136/70 96 01/19/22 04:21 36.5 C 65 18 127/70 96 01/19/22 01:22 36.6 C 74 18 143/82 H 95 Laboratory Results Laboratory Results WBC 11.99 K/uL (4.8-10.8) H 01/19/22 05:51 RBC 3.21 M/uL (4.2-5.4) L 01/19/22 05:51 Hgb 9.5 g/dL (12.0-16.0) L 01/19/22 05:51 Hct 28.2 % (37-47) L 01/19/22 05:51 MCV 87.9 fL (80-100) 01/19/22 05:51 MCH 29.6 pg (25-34) 01/19/22 05:51 MCHC 33.7 g/dL (32-36) 01/19/22 05:51 RDW Std Deviation 40.8 fL (36.4-46.3) 01/19/22 05:51 RDW Coeff of Beverly 12.6 % (11.5-14.5) 01/19/22 05:51 Plt Count 215 K/uL (130-400) 01/19/22 05:51 MPV 10.4 fL (7.4-10.4) 01/19/22 05:51 Sodium 136 mmol/L (136-145) 01/19/22 05:51 Potassium 4.0 mmol/L (3.5-5.1) 01/19/22 05:51 Chloride 106 mmol/L (98-107) 01/19/22 05:51 Carbon Dioxide 25 mmol/L (21-32) 01/19/22 05:51 Anion Gap 5 (3-11) 01/19/22 05:51 BUN 17 mg/dl (6-23) 01/19/22 05:51 Creatinine 0.73 mg/dl (0.6-1.2) 01/19/22 05:51 Est Cr Clr Drug Dosing 77.4 ml/min 01/19/22 05:51 Est GFR ( Amer) 95.4 ml/min 01/19/22 05:51 Est GFR (Non-Af Amer) 82.3 ml/min 01/19/22 05:51 BUN/Creatinine Ratio 23.3 (10-20) H 01/19/22 05:51 Glucose 118 mg/dl (70-99(Fasting)) H 01/19/22 05:51 Calcium 8.7 mg/dl (8.5-10.1) 01/19/22 05:51 SARS-CoV-2, RNA, NAAT NEGATIVE (NEGATIVE) 01/18/22 09:19 Impressions Knee X-Ray 01/18/22 14:36 XR knee RT 1 or 2V routine HISTORY: 71 years-old Female Surgical Post Op right knee total joint COMPARISON: None TECHNIQUE: 2 views of the right knee FINDINGS: Total joint arthroplasty with patellar resurfacing. Expected postoperative soft tissue swelling with deep tissue air and surgical drainage catheter. No acute fracture or unexpected opaque foreign body. IMPRESSION: Total joint arthroplasty with expected postoperative changes. ACT 112: Negative or not required by law. The above report was generated using voice recognition software. It may contain grammatical, syntax or spelling errors. Electronically signed by: Melvin Matt M.D. 01/18/2022 3:07 PM
[2022-01-19] MEDS ORDERED: POLYETHYLENE (MIRALAX) 17 GM PACK PO PRN (18:24)
[2022-01-19] MEDS: ANASTROZOLE 1 MG TAB PO SCH (20:26)
[2022-01-19] MEDS: ATORVASTATIN 10 MG TAB PO SCH (20:27)
[2022-01-19] MEDS: SENNA 8.6 MG TAB PO SCH (20:28)
[2022-01-19] MEDS: LATANOPROST 0.005% OP SOLN 2.5 ML BTL OP SCH (20:28)
[2022-01-20] MEDS: HYDROCODONE/ACETAMOPHEN 5/325MG TAB PO PRN ×3 (00:46→19:45)
[2022-01-20 09:04] LABS: Hematocrit (blood only) 26.6 % (37-47); Hemoglobin 9.3 g/dL (12.0-16.0); Mean Corpuscular Hemoglobin 31.5 pg (25-34); Mean Corpuscular Volume 90.2 fL (80-100); Mean Platelet Volume 10.7 fL (7.4-10.4); Platelet Count 182 K/uL (130-400); RDW Coefficient of Variation 13.3 % (11.5-14.5); RDW Standard Deviation 43.6 fL (36.4-46.3); Red Blood Count 2.95 M/uL (4.2-5.4); White Blood Count 8.21 K/uL (4.8-10.8)
[2022-01-20] MEDS: DOCUSATE SODIUM 100 MG CAP PO SCH ×2 (09:05→19:51)
[2022-01-20] MEDS: CITALOPRAM 20 MG TAB PO SCH (09:05)
[2022-01-20] MEDS: MULTIVITAMIN TAB PO SCH (09:05)
[2022-01-20] MEDS: DOXYCYCLINE HYCLATE 50 MG CAP PO SCH (09:05)
[2022-01-20] MEDS: FOLIC ACID 400 MCG TAB PO SCH (09:05)
[2022-01-20] MEDS: CeleBREX 200 MG CAP PO SCH (09:06)
[2022-01-20] MEDS: ASPIRIN 81 MG ECTAB PO SCH ×2 (09:06→19:50)
--- NOTE | 2022-01-20 09:19 | Orthopedic Progress Note ---
Date of Service January 20, 2022 Assessment & Plan (1) Arthritis of right knee: Plan: Postop day 2 status post right total knee arthroplasty. PT/OT protocols. Weightbearing as tolerated. DVT prophylaxis-aspirin p.o. twice daily, SCDs, KIMO varma. Pain management as written. Acute blood loss anemia- hemoglobin 9.3 today. Patient currently asymptomatic. DC planning patient is planning for outpatient PT upon discharge. Patient unsure if she is ready to go home today. We will see how she progresses with her physical therapy and see how her pain control is and possibly plan for discharge to home later this afternoon. Admission and Anticipated Discharge Date Admission Date: January 19, 2022 Subjective Postop day 2 Patient awake and alert this morning. States she had a very rough night with muscle spasms from the thigh down to her lower leg. Also having concerns that her popliteal cyst was not removed. Discussed that we do not remove the cyst during surgery secondary to where it resides and where we are working on the knee during the procedure. Discussed that many times is decompressed but not always. No other complaints this morning. Denies shortness of breath, chest pain, lightheadedness. Physical Exam Physical Exam: Florina dressing is clean, dry, and intact. She has notable ecchymosis and around the knee mostly over the medial aspect going posteriorly. Comparing the popliteal fossa from the right and left knees, she does have some mild swelling in the right side which we discussed could be secondary to surgery versus being her popliteal cyst. It is nontender on palpation. She has tenderness on palpation of the proximal thigh secondary to tourniquet. Calves are soft and nontender. Homans exam is negative. Neurovascular is intact. Toes are mobile. Results & Data ([facility]) Vital Signs (Past 12 Hours) Vital Signs Temp Pulse Resp BP Pulse Ox 01/20/22 06:05 36.7 C 53 L 18 125/68 95
[2022-01-20 09:30] LABS: Calcium 8.8 mg/dl (8.5-10.1); Creatinine Clr Calc Pharmacy 79.6 ml/min; Est GFR (African American) 98.6 ml/min; Est GFR (Non-African American) 85.1 ml/min; Potassium 3.5 mmol/L (3.5-5.1)
[2022-01-20] MEDS ORDERED: LORazepam 0.5 MG TAB PO PRN (11:37)
--- NOTE | 2022-01-20 12:33 | Discharge Summary ---
Date of Service date of discharge: January 21, 2022 date of admission: 01/18/22 Admission HPI Per Admitting Provider Monique is a 71 year old female who complains of right knee pain, presents for pre-op evaluation prior to a right total knee replacement by Dr Modi at [facility]. She complains of pain, decreased range of motion, instability and stiffness in her right knee. Currently the patient states that the symptoms are moderate- severe and rated 7/10. The pain is described as aching, sharp and throbbing. Her symptoms are aggravated by ascending stairs, daily activities, first steps while awake walking. Prior NSAIDs include IBU and Aleve. Prior pain medications include Tylenol and Hydrocodone. she has been treated with multiple previous cortisone and visco injections in the past without much relief. Principal Diagnosis right knee arthritis Discharge Exam Vital Signs Temp Pulse Pulse Resp BP Pulse Ox 01/20/22 06:05 36.7 C 53 L 18 125/68 95 01/19/22 20:19 36.9 C 76 14 141/75 H 97 01/19/22 15:30 36.8 C 70 20 124/76 99 Intake and Output 01/19/22 01/20/22 01/20/22 22:59 06:59 14:59 Intake Total 240 / 500 260 / 500 Output Total 25 / 225 Balance 215 / 275 260 / 275 Intake: Oral 240 / 500 260 / 500 Output: Drain Output 25 / 25 Right Knee Hemovac 25 / 25 Other: # Unmeasured Voids 1 Musculoskeletal right knee: NVDI, calf SNT, negative maame sign. DP palpable, able to wiggle toes/ankle movement without difficulty. DARREN dressing clean dry and intact. expected post-operative bruising noted. Discharge Data Allergies Allergy/AdvReac Type Severity Reaction Status Date / Time oxycodone Allergy Severe Rash, Hair Verified 01/18/22 09:29 Loss, Hallucinations, disrupts balance Lobster Allergy Intermediate FAINTING, Uncoded 01/03/22 07:55 DIZZINESS, HOT FLASHES Procedures Performed Operation Date: 01/18/22 11:45 Actual Procedures p Right Total Knee Arthroplasty(Right) - Ralf Modi, Ordered Studies 01/18/22 12:27 US - OR guided needle placemen Routine Hospital Course (1) Arthritis of right knee: Postop day 2 status post right total knee arthroplasty. PT/OT protocols. Weightbearing as tolerated. DVT prophylaxis-aspirin p.o. twice daily, Kehinde, KIMO varma. Pain management as written. Acute blood loss anemia- hemoglobin 9.3 today. Patient currently asymptomatic. DC planning patient is planning for outpatient PT upon discharge. Patient unsure if she is ready to go home today. We will see how she progresses with her physical therapy and see how her pain control is and possibly plan for discharge to home later this afternoon. plan for outpatient PT Total Time Total Time Spent Total Time Spent (In Minutes): 20 Discharge Plan Discharge Items Patient Disposition: Home - Self-Care Reason For Visit: Unilateral Primary Osteoarthritis Right Knee Discharge Diagnosis: RIGHT TOTAL KNEE REPLACEMENT Condition on Discharge: Good Activity: Per Instructions section Lifting: Wait until after follow-up appointment Weightbearing: Right weightbearing Weightbearing Comment: WBAT WITH WALKER Non-emergency contact: Surgeon Call non-emergency contact if: you have any medication questions, your temperature is above 101, your wound has increased redness, your wound has increased drainage and your wound pain has increased Follow-up/Referrals: Ralf Modi DO [Surgeon] - (Follow up with Dr Modi in 2 weeks for your first postoperative visit. ) Christina Rose CRNP [Primary Care Provider] - Diet: Regular Addtl Attending Provider Instructions: DO NOT TAKE YOUR DOXYCYCLINE FOR 2 WEEKS WHILE ON THE ANTIBIOTIC THAT DR MODI HAS PRESCRIBED FOR YOU. YOU MAY THEN RESTART IT AFTER TWO WEEKS. ACTIVITY RECOMMENDATIONS: SELF CARE INSTRUCTIONS AFTER TOTAL KNEE REPLACEMENT A. You may need to continue a physical therapy program after discharge from the hospital. There are several options available to you. Your doctor will assist you in selecting the best one for you. 1. An out-patient facility 2 to 3 times a week for therapy or home therapy. 2. Continue working on all exercises taught to you in the hospital. Your goals should be to increase bending of your knee to 90 degrees and beyond and to fully straighten your knee. B. You may progress at your own pace from walking with a walker or crutches to a cane; then to no assistive devices. C. Make walking a part of your daily routine. Be up as much as comfortable with rest periods throughout the day. Rest with leg elevation is very important. Use the ice wrap frequently for the first 3-4 weeks. D. There are no restrictions on activities. You may ride in a car, shop, participate in steelworker and all social activities. E. Wear the long elastic stockings (KIMO hose) 20 hours a day for 2 weeks after surgery. They can be removed several times a day for laundering and for a bath. F. You may shower, no tub baths until cleared by your doctor. SPECIAL CARE INSTRUCTIONS: VERY IMPORTANT TO READ AND REVIEW A. There are a few signs you need to watch for after you are home. Call [facility] if you notice any of the followin. Increased severe knee pain. Some pain is expected especially when you exercise. 2. Increased swelling in your leg or knee; pain or swelling of the calf muscle in either lower leg. 3. Any fluid drainage from the incision. 4. Shortness of breath or chest pain. B. Please call [facility] at if you have any concerns or questions about your operation or recovery. The doctor or his nurse will return your call promptly. C. You must take antibiotics before dental work, bladder, bowel or other surgery. Your doctor will provide you with a permanent care to carry describing this precaution. IMPORTANT: * REMEMBER TO TAKE ASPIRIN, 81 MG, TWICE DAILY FOR 4 WEEKS UNLESS OTHERWISE DIRECTED. THIS IS YOUR BLOOD THINNER. * CALL IF INCREASED PAIN, REDNESS, DRAINAGE OR FEVER GREATER THAT 101. * WEAR KIMO HOSE 20 HOURS PER DAY FOR 2 WEEKS. * DARREN Dressing- This is a large suction dressing covering your incision. This will help pull any excess drainage from the wound and allow your incision to heal properly. You may shower with this if you can keep the unit outside of the shower. If any bleeding or leakage is noted please call your doctor's office. This will remain on your incision for 7 days and then should be removed. This can be done yourself or by the home nursing staff if applicable. The entire unit is disposable once removed. Once removed, keep incision clean and dry. If redness or drainage is noted, please call your surgeon. ONCE DARREN IS REMOVED, FOLLOW THESE INSTRUCTIONS: DERMABOND Prineo- This is a mesh tape dressing that is covered with glue. It should remain in place until the incision is properly healed, usually 10-14 days. This dressing is designed to naturally slough off. You may trim the excess mesh tape as it peels off. Incision may be briefly wet in a shower. Dry immediately by blotting with a clean, dry towel. Do not bath or swim until instructed by your doctor. Do not scratch, rub, or pick at the dressing. Do not apply any topical ointments or lotions until dressing is completely removed and/or instructed by your doctor. There may be a small piece of suture material at one end of your incision. Do not pull or trim this. If it is bothersome or catching on clothing, you may cover it with a band-aid. IF INCISION IS LEAKING THROUGH DRESSING, CALL THE OFFICE . FOLLOW UP VISIT: If appointment is not already scheduled: Please call [facility] to make a follow-up appointment for 2 weeks after your surgery at . Pending Studies at Discharge: No Stand-Alone Forms: My [facility] [employer], Smoking Cessation Medications and DC Order Prescriptions: New celecoxib [Celebrex] 200 mg Capsule 200 mg PO BID 14 Days Qty: 28 RF: 0 aspirin 81 mg Tablet,Delayed Release (Dr/Ec) 81 mg PO BID 30 Days Qty: 60 RF: 0 hydrocodone-acetaminophen 5-325 mg tablet 1 - 2 tab PO Q6H MDD 8 tabs PRN (Reason: pain) Qty: 30 RF: 0 cefadroxil 500 mg capsule 500 mg PO BID Qty: 28 RF: 1 polyethylene glycol 3350 [Miralax] 17 gram powder in packet 17 g PO DAILY PRN (Reason: constipation) Qty: 5 RF: 0 Continued anastrozole 1 mg Tablet 1 mg PO HS RF: 0 atorvastatin [Lipitor] 10 mg Tablet 10 mg PO HS RF: 0 folic acid 400 mcg Tablet 0.4 mg PO QAM RF: 0 citalopram 20 mg Tablet 20 mg PO QAM RF: 0 famotidine 20 mg Tablet 20 mg PO DAILY PRN (Reason: Heartburn) RF: 0 loratadine [Claritin] 10 mg Tablet 10 mg PO DAILY PRN (Reason: Nasal Congestion) RF: 0 One-A-Day Womens Formula 18 mg iron-400 mcg-500 mg Tablet 1 tab PO QAM RF: 0 diphenhydramine HCl [Benadryl Allergy] 25 mg Tablet 25 mg PO HS PRN (Reason: Sleep) RF: 0 lorazepam 0.5 mg Tablet 0.5 mg PO HS PRN (Reason: Anxiety) RF: 0 amoxicillin 500 mg Tablet 2,000 mg PO UD PRN (Reason: prior to dental procedures) RF: 0 propranolol 10 mg Tablet 10 mg PO DAILY PRN (Reason: Tachycardia) RF: 0 latanoprost (PF) 0.005 % Drops 1 drp OPHTHALMIC (EYE) HS RF: 0 Discontinued hydrocodone-acetaminophen 5-325 mg Tablet 0.25 tab PO HS PRN (Reason: Pain) RF: 0 ibuprofen 400 mg Tablet 400 mg PO TID RF: 0 aspirin 81 mg Tablet,Chewable 81 mg PO QAM RF: 0 doxycycline hyclate 50 mg Tablet 50 mg PO QAM RF: 0 Discharge Orders: Discharge Order (Routine); Ordered 01/21/22 Ordered By: Faizan Haider Admission Data Admit Date/Time: 01/19/22 12:16 Attending Provider: Ralf Modi Admit Provider: Ralf Modi Primary Care Provider: Christina Rose
[2022-01-20] MEDS: ANASTROZOLE 1 MG TAB PO SCH (19:50)
[2022-01-20] MEDS: ATORVASTATIN 10 MG TAB PO SCH (19:51)
[2022-01-20] MEDS: SENNA 8.6 MG TAB PO SCH (19:52)
[2022-01-20] MEDS: LATANOPROST 0.005% OP SOLN 2.5 ML BTL OP SCH (19:52)
[2022-01-20] MEDS: KETOROLAC 30 MG/ML VIAL IV PRN (21:22)
[2022-01-21] MEDS: HYDROCODONE/ACETAMOPHEN 5/325MG TAB PO PRN ×3 (00:26→12:40)
[2022-01-21] MEDS: KETOROLAC 30 MG/ML VIAL IV PRN (03:32)
--- NOTE | 2022-01-21 06:47 | Orthopedic Progress Note ---
Date of Service January 21, 2022 Assessment & Plan (1) Arthritis of right knee: Plan: Postop day 3 status post right total knee arthroplasty. PT/OT protocols. Weightbearing as tolerated. DVT prophylaxis-aspirin p.o. twice daily, Kehinde, KIMO varma. Pain management as written. Acute blood loss anemia- hemoglobin 9.3 today. Patient currently asymptomatic. DC planning patient is planning for outpatient PT upon discharge. plan for d/c home later today Plan: plan for outpatient PT Admission and Anticipated Discharge Date Admission Date: January 19, 2022 Subjective Postop day 3 Patient awake and alert this morning. pain much better this am thus far. denies CP/SOB Physical Exam Physical Exam: Vital Signs Temp Pulse Resp BP Pulse Ox 01/20/22 22:43 36.9 C 73 18 126/76 98 01/20/22 15:34 36.7 C 70 16 136/71 93 Intake and Output 01/20/22 01/20/22 01/21/22 14:59 22:59 06:59 Intake Total 400 / 500 100 / 500 Balance 400 / 500 100 / 500 Intake: Oral 400 / 500 100 / 500 Musculoskeletal: Right knee: NVDI, calf SNT, negative maame sign. DP palpable, able to wiggle toes/ankle movement without difficulty. DARREN dressing clean dry and intact. expected post-operative bruising noted. Results & Data ([facility]) Vital Signs (Past 12 Hours) Vital Signs Temp Pulse Resp BP Pulse Ox 01/20/22 22:43 36.9 C 73 18 126/76 98
[2022-01-21] MEDS: ASPIRIN 81 MG ECTAB PO SCH (08:05)
[2022-01-21] MEDS: FOLIC ACID 400 MCG TAB PO SCH (08:05)
[2022-01-21] MEDS: DOCUSATE SODIUM 100 MG CAP PO SCH (08:05)
[2022-01-21] MEDS: CITALOPRAM 20 MG TAB PO SCH (08:05)
[2022-01-21] MEDS: DOXYCYCLINE HYCLATE 50 MG CAP PO SCH (08:06)
[2022-01-21] MEDS: MULTIVITAMIN TAB PO SCH (08:06)
== END 2022-01-21 14:38 | disposition home or self-care (01) | DRG 470 ==
LOC: PACUINP 09:04 → ASU 09:04 → 3W 17:17